=== PATIENT | male | born 1970 | race Caucasian/White ===

== ENCOUNTER 2017-05-09 01:46 | Emergency (ER) | payer SELFPAY ==
[~2017-05-09] VITALS: Ht 182.9 cm; Wt 115.7 kg
[2017-05-09] MEDS ORDERED: PRAV40TA2 (02:00)
[2017-05-09] MEDS ORDERED: OMEP40CA36 (02:00)
[2017-05-09] MEDS ORDERED: BUDE10.2 (02:00)
[2017-05-09] MEDS ORDERED: MONT10TA24 (02:00)
[2017-05-09] MEDS ORDERED: FLUT16SP22 (02:00)
[2017-05-09] MEDS ORDERED: PHENYLEPHRINE INJ 10 MG/ML (NEO-SYNEPHRINE 1%) IV ONE (02:30)
[2017-05-09] MEDS ORDERED: TERBUTALINE INJ 1 MG/ML (BRETHINE) AMP SC ONE ×2 (02:30→03:15)
[2017-05-09 02:32] LABS: BILIRUBIN,URINE NEGATIVE (NEGATIVE); CLARITY,URINE CLEAR; COLOR,URINE YELLOW; GLUCOSE, URINE (UA) NEGATIVE (NEGATIVE); KETONES,URINE NEGATIVE (NEGATIVE); LEUKOCYTE ESTERASE ,URINE NEGATIVE (NEGATIVE); NITRITE,URINE NEGATIVE (NEGATIVE); PH,URINE 7 (5-9); PROTEIN,URINE NEGATIVE (NEGATIVE); UROBILINOGEN,URINE NORMAL (NORMAL)
[2017-05-09 02:41] LABS: BACTERIA,URINE NEGATIVE /HPF; SQUAMOUS EPITHELIAL CELL,UR RARE /HPF; WBC,URINE RARE /HPF
[2017-05-09 02:45] LABS: AMPHETAMINE SCREEN, URINE NEGATIVE (NEGATIVE); BARBITURATE SCREEN URINE NEGATIVE (NEGATIVE); BENZODIAZEPINES SCREEN URINE NEGATIVE (NEGATIVE); CANNABINOID SCREEN, URINE NEGATIVE (NEGATIVE); COCAINE SCREEN URINE NEGATIVE (NEGATIVE); METHADONE STAT NEGATIVE (NEGATIVE); METHAMPHETAMINE SCREEN URINE S NEGATIVE (NEGATIVE); OPIATE SCREEN URINE NEGATIVE (NEGATIVE); OXYCODONE STAT NEGATIVE (NEGATIVE); PROPOXYPHENE STAT NEGATIVE (NEGATIVE); TRICYCLIC ANTIDEPRESSANTS SCRE NEGATIVE (NEGATIVE)
[2017-05-09] MEDS ORDERED: fentaNYL INJECTION 100 MCG/2 ML AMP IVP STA ×2 (02:59→05:25)
--- NOTE | 2017-05-09 03:01 | ED GU-Male ---
General Chief Complaint: -Male Stated Complaint: 12 HR ERECTION Nursing Triage Note: c/o erection x12 hrs. denies taking medication for e.d. states hx of priapism Source: patient Exam Limitations: no limitations History of Present Illness Date Seen by Provider: May 09, 2017 Time Seen by Provider: 02:10 Initial Comments Here with report of a reaction that started about 12 hours ago. Had a history of this about 7 years ago. States at that time he had to have it drained. Does not know of any medication that he may be on that would have started this. Denies taking anything new or doing anything different. Does complain of pain at the site of the erection. Timing/Duration: yesterday, getting worse Severity/Quality: moderate, aching Location: other (penis) Radiation: none Activities at Onset: none Sexual [place] History: less than 2 months ago, single partner Associated Symptoms: denies symptoms Allergies and Home Medications Allergies Coded Allergies: No Known Drug Allergies (Unverified , 05/09/17) Home Medications Budesonide/Formoterol Fumarate 10.2 Gm Hfa.aer.ad, (Reported) Fluticasone Propionate 16 Gm [place].susp, (Reported) Montelukast Sodium 10 Mg Tablet, (Reported) Omeprazole 40 Mg Capsule.dr, (Reported) Pravastatin Sodium 40 Mg Tablet, (Reported) Constitutional: see HPI, No chills, No fever EENTM: no symptoms reported Respiratory: no symptoms reported Cardiovascular: no symptoms reported Gastrointestinal: no symptoms reported Genitourinary: see HPI, pain Musculoskeletal: no symptoms reported Skin: no symptoms reported Psychiatric/Neurological: No Symptoms Reported All Other Systemes Reviewed Negative Unless Noted: Yes Past Neewwmo-Heijzm-Sfggzs Hx Patient Social History Alcohol Use: Occasionally Uses Number of Drinks Today: 6 Alcohol Beverage of Choice: Beer Recreational Drug Use: No Smoking Status: Current Someday Smoker Type Used: Cigarettes, Smokeless Tobacco 2nd Hand Smoke Exposure: Yes Recent Foreign Travel: No Contact w/Someone Who Travel: No Recent Infectious Disease Expo: No Recent Hopitalizations: No Immunizations Up To Date Tetanus Booster (TDap): Unknown Seasonal Allergies Seasonal Allergies: No Surgeries History of Surgeries: Yes Surgeries: Orthopedic Respiratory History of Respiratory Disorde: Yes Respiratory Disorders: Asthma Cardiovascular History of Cardiac Disorders: Yes Cardiac Disorders: High Cholesterol Neurological History of Neurological Disord: No Genitourinary History of Genitourinary Disor: Yes (priapism) Gastrointestinal History of Gastrointestinal Di: Yes Gastrointestinal Disorders: Gastroesophageal Reflux Musculoskeletal History of Musculoskeletal Dis: No Endocrine History of Endocrine Disorders: No HEENT History of HEENT Disorders: No Cancer History of Cancer: No Psychosocial History of Psychiatric Problem: No Integumentary History of Skin or Integumenta: No Blood Transfusions History of Blood Disorders: No Reviewed Nursing Assessment Reviewed/Agree w Nursing PMH: Yes Family Medical History Significant Family History: No Pertinent Family Hx Physical Exam Vital Signs Vital Sign - Last 12Hours 05/09/17 01:50 Temp 97.7 Pulse 110 Resp 16 B/P (MAP) 147/107 (120) Pulse Ox 97 O2 Delivery Room Air Capillary Refill : Less Than 3 Seconds General Appearance: WD/WN, mild distress (pain) HEENT: PERRL/EOMI, pharynx normal Neck: full range of motion, supple Cardiovascular: regular rate, rhythm, no murmur Respiratory: lungs clear, normal breath sounds Gastrointestinal: non tender, soft Male: No testicular tenderness, other (erect penis without significantly full glans) Neurologic/Psychiatric: alert, oriented x 3 Skin: normal color, warm/dry Progress/Results/Core Measures Suspected Sepsis Recent Fever Within 48 Hours: No Infection Criteria Present: None New/Unexplained Altered Menta: No Sepsis Screen: No Definite Risk Sepsis Diagnosis: SIRS Temperature:97.7 Pulse: 110 Respiratory Rate: 16 Laboratory Tests 05/09/17 03:10: White Blood Count 10.4 Blood Pressure 147 /107 Mean: 120 Laboratory Tests 05/09/17 03:10: Creatinine 0.87, Platelet Count 259, Total Bilirubin 0.3 Results/Orders Lab Results Laboratory Tests Test 05/09/17 02:20 05/09/17 03:10 Range/Units Urine Color YELLOW Urine Clarity CLEAR Urine pH 7 5-9 Urine Specific [place] 1.005 L 1.016-1.022 Urine Protein NEGATIVE NEGATIVE Urine Glucose (UA) NEGATIVE NEGATIVE Urine Ketones NEGATIVE NEGATIVE Urine Nitrite NEGATIVE NEGATIVE Urine Bilirubin NEGATIVE NEGATIVE Urine Urobilinogen NORMAL NORMAL MG/DL Urine Leukocyte Esterase NEGATIVE NEGATIVE Urine RBC (Auto) NEGATIVE NEGATIVE Urine RBC NONE /HPF Urine WBC RARE /HPF Urine Squamous Epithelial Cells RARE /HPF Urine Crystals NONE /LPF Urine Bacteria NEGATIVE /HPF Urine Casts NONE /LPF Urine Mucus NEGATIVE /LPF Urine Culture Indicated NO Urine Opiates Screen NEGATIVE NEGATIVE Urine Oxycodone Screen NEGATIVE NEGATIVE Urine Methadone Screen NEGATIVE NEGATIVE Urine Propoxyphene Screen NEGATIVE NEGATIVE Urine Barbiturates Screen NEGATIVE NEGATIVE Ur Tricyclic Antidepressants Screen NEGATIVE NEGATIVE Urine Phencyclidine Screen NEGATIVE NEGATIVE Urine Amphetamines Screen NEGATIVE NEGATIVE Urine Methamphetamines Screen NEGATIVE NEGATIVE Urine Benzodiazepines Screen NEGATIVE NEGATIVE Urine Cocaine Screen NEGATIVE NEGATIVE Urine Cannabinoids Screen NEGATIVE NEGATIVE White Blood Count 10.4 4.3-11.0 10^3/uL Red Blood Count 4.52 4.35-5.85 10^6/uL Hemoglobin 14.0 13.3-17.7 G/DL Hematocrit 39 L 40-54 % Mean Corpuscular Volume 87 80-99 FL Mean Corpuscular Hemoglobin 31 25-34 PG Mean Corpuscular Hemoglobin Concent 36 32-36 G/DL Red Cell Distribution Width 13.1 10.0-14.5 % Platelet Count 259 130-400 10^3/uL Mean Platelet Volume 10.3 7.4-10.4 FL Neutrophils (%) (Auto) 37 L 42-75 % Lymphocytes (%) (Auto) 50 H 12-44 % Monocytes (%) (Auto) 10 0-12 % Eosinophils (%) (Auto) 3 0-10 % Basophils (%) (Auto) 1 0-10 % Neutrophils # (Auto) 3.8 1.8-7.8 X 10^3 Lymphocytes # (Auto) 5.2 H 1.0-4.0 X 10^3 Monocytes # (Auto) 1.1 H 0.0-1.0 X 10^3 Eosinophils # (Auto) 0.3 0.0-0.3 10^3/uL Basophils # (Auto) 0.1 0.0-0.1 10^3/uL Sodium Level 142 135-145 MMOL/L Potassium Level 3.8 3.6-5.0 MMOL/L Chloride Level 107 98-107 MMOL/L Carbon Dioxide Level 21 21-32 MMOL/L Anion Gap 14 5-14 MMOL/L Blood Urea Nitrogen 10 7-18 MG/DL Creatinine 0.87 0.60-1.30 MG/DL Estimat Glomerular Filtration Rate > 60 BUN/Creatinine Ratio 11 Glucose Level 97 70-105 MG/DL Calcium Level 9.0 8.5-10.1 MG/DL Total Bilirubin 0.3 0.1-1.0 MG/DL Aspartate Amino Transf (AST/SGOT) 20 5-34 U/L Alanine Aminotransferase (ALT/SGPT) 24 0-55 U/L Alkaline Phosphatase 51 40-136 U/L Total Protein 7.0 6.4-8.2 GM/DL Albumin 4.4 3.2-4.5 GM/DL My Orders Orders - CHRISTEN MCHUGH MD Terbutaline Injection (Brethine Injectio (05/09/17 02:30) Cbc With Automated Diff (05/09/17 02:25) Comprehensive Metabolic Panel (05/09/17 02:25) Drug Screen Stat (Urine) (05/09/17 02:25) Ua Culture If Indicated (05/09/17 02:25) Phenylephrine Injection (Josue-Synephrine (05/09/17 02:30) Fentanyl Injection (Sublimaze Injection (05/09/17 02:59) Saline Lock/Iv-Start (05/09/17 02:59) Terbutaline Injection (Brethine Injectio (05/09/17 03:15) Fentanyl Injection (Sublimaze Injection (05/09/17 04:15) Fentanyl Injection (Sublimaze Injection (05/09/17 05:25) Medications Given in ED Current Medications Medications Dose Ordered Sig/Yevgeniy Route Start Time Stop Time Status Last Admin Dose Admin Fentanyl Citrate 75 mcg ONCE ONCE IVP 05/09/17 04:15 05/09/17 04:16 DC 05/09/17 04:14 75 MCG Phenylephrine HCl 0.5 mg ONCE ONCE IV 05/09/17 02:30 05/09/17 02:31 DC 05/09/17 03:44 0.5 MG Terbutaline Sulfate 0.25 mg ONCE ONCE SC 05/09/17 02:30 05/09/17 02:31 DC 05/09/17 02:35 0.25 MG Terbutaline Sulfate 0.25 mg ONCE ONCE SC 05/09/17 03:15 05/09/17 03:16 DC 05/09/17 03:07 0.25 MG Vital Signs/I&O Vital Sign - Last 12Hours 05/09/17 05/09/17 05/09/17 05/09/17 01:50 03:07 03:30 04:14 Temp 97.7 97.7 97.7 Pulse 110 92 Resp 16 18 B/P (MAP) 147/107 (120) 135/87 (103) Pulse Ox 97 98 O2 Delivery Room Air Room Air 05/09/17 05/09/17 05/09/17 04:30 05:30 05:48 Temp 97.7 98.1 Pulse 94 97 Resp 16 16 B/P (MAP) 130/89 (103) Pulse Ox 98 98 O2 Delivery Room Air Room Air Capillary Refill : Less Than 3 Seconds Blood Pressure Mean: 120 Progress Note : Progress Note Seen and evaluated. UA and labs ordered. I did discuss the case with Dr. Evans at 0217. He is currently not in town but we discussed options for treatment. We will treat terbutaline 0.25 mg subcutaneous. This was done and repeated 1. This did not provide effective resolution. 0355: The phenylephrine 0.5 mg in 2 mL of saline injected into the corpus left side at 2 o 'clock position. Blood was aspirated and fluid was instilled. Monitor patient. Patient does have labs complete and has had until 75 g IV 2 for pain. 0445: Previous dose of phenylephrine not effective. Repeat dosing attempted. This was placed on the right side at 10 o'clock position into the corpus. 0515: This second injection did not work. Patient will require transfer to Center with urology. Patient states that he wants to go to [place] as this is where his insurance is for. I did express concerns about the [facility] system being closed for transfer and potentially the [facility] system being close for transfer but will attempt. 0520: [facility] is closed for transfers and are unable to accept transfer into their system. I did discuss this with the patient and initially he was going to leave and pursue presenting himself to that system but did allow for me to call [facility] in [place] for possibility of transfer. 0528: I did discuss the case with [facility] and they are also close to transfers. 0535: Patient informed that the [facility] systems is closed and he states that he will just leave at this time and self present for evaluation at the system of his choice. I did express importance of urgent urological follow-up and that I would happily arrange transfer to another system that was open. He states that he would return if needed but he wants to go to try to get his urologist. I expressed concern related to the need for evaluation and treatment as this could cause significant sexual dysfunction if not treated. He states he would just like to go try to get evaluation himself. Patient verbalized understanding that without treatment that this may cause permanent dysfunction. Discharged with return precautions. Patient verbalize understanding of instructions and agreement with plan. 0625 : I did discuss the case with the [facility] charge nurse for the emergency department as the patient indicated on leaving that he was going to go to that system. I did relay the information about treatment that was given here and course of events as well as the patient's stated intent to present to their system. I let them know to call for any questions and or if they needed more information related to the course of care that was provided here. They stated appreciation of the call and would call if needed. Departure Impression Impression: Primary Impression: Esther Disposition: 01 HOME, SELF-CARE Condition: Stable/Unchanged Departure-Patient Inst. Decision time for Depature: 05:40 Referrals: STACY WHITE DO (PCP/Family) Primary Care Physician Patient Instructions: Priapnia Add. Discharge Instructions: All discharge instructions reviewed with patient and/or family. Voiced understanding. It is vitally important that you follow-up with a urologist JEY as this condition can lead to significant sexual dysfunction if not treated. Please return for any concerns or if you need assistance and we will assist in transport to any location that is available. CHRISTEN MCHUGH MD May 09, 2017 03:00
[2017-05-09 03:19] LABS: BASOPHILS # (AUTO) 0.1 10^3/uL (0.0-0.1); BASOPHILS % (AUTO) 1 % (0-10); EOSINOPHILS # (AUTO) 0.3 10^3/uL (0.0-0.3); EOSINOPHILS % (AUTO) 3 % (0-10); HEMATOCRIT 39 % (40-54); LYMPHOCYTES # (AUTO) 5.2 X 10^3 (1.0-4.0); LYMPHOCYTES % (AUTO) 50 % (12-44); MEAN CORPUSCULAR HEMOGLOBIN 31 PG (25-34); MEAN CORPUSCULAR HGB CONC 36 G/DL (32-36); MEAN CORPUSCULAR VOLUME 87 FL (80-99); MEAN PLATELET VOLUME 10.3 FL (7.4-10.4); MONOCYTES # (AUTO) 1.1 X 10^3 (0.0-1.0); MONOCYTES % (AUTO) 10 % (0-12); NEUTROPHILS # (AUTO) 3.8 X 10^3 (1.8-7.8); NEUTROPHILS % (AUTO) 37 % (42-75); PLATELET COUNT 259 10^3/uL (130-400); RED BLOOD COUNT 4.52 10^6/uL (4.35-5.85); RED CELL DISTRIBUTION WIDTH 13.1 % (10.0-14.5); WHITE BLOOD COUNT 10.4 10^3/uL (4.3-11.0)
[2017-05-09 03:30] VITALS: BP 135/87
[2017-05-09 03:36] LABS: ALANINE AMINOTRANSFERASE 24 U/L (0-55); ALBUMIN 4.4 GM/DL (3.2-4.5); ALKALINE PHOSPHATASE 51 U/L (40-136); BILIRUBIN,TOTAL 0.3 MG/DL (0.1-1.0); BUN/CREATININE RATIO 11; CARBON DIOXIDE 21 MMOL/L (21-32); CHLORIDE 107 MMOL/L (98-107); CREATININE SERUM 0.87 MG/DL (0.60-1.30); GFR ESTIMATED > 60; GLUCOSE 97 MG/DL (70-105); POTASSIUM 3.8 MMOL/L (3.6-5.0); SODIUM 142 MMOL/L (135-145)
[2017-05-09] MEDS ORDERED: fentaNYL INJECTION 100 MCG/2 ML AMP IVP ONE (04:15)
[2017-05-09 04:30] VITALS: BP 130/89
[2017-05-09 05:48] VITALS: BP 112/71
== END 2017-05-09 05:45 | disposition home or self-care (01) ==
LOC: ER 01:51
DX: N48.30 Priapism, unspecified (principal); J45.909 Unspecified asthma, uncomplicated; E78.00 Pure hypercholesterolemia, unspecified; K21.9 Gastro-esophageal reflux disease without esophagitis; F17.210 Nicotine dependence, cigarettes, uncomplicated
CPT/HCPCS: 36415; 80053; 80306; 81000; 85025; 96372; 96374; 96375; 96376